=== PATIENT | male | born 1970 | race Caucasian/White ===

== ENCOUNTER → 2020-06-10 13:03 | Outpatient (BNVA) | payer MEDICARE, SELFPAY | PROVIDERS: PCP Nurse Practitioner; Visit Provider Internal Medicine Rheumatology | DX: M05.79 Rheumatoid arthritis with rheumatoid factor of multiple sites without organ or systems involvement (principal); Z79.899 Other long term (current) drug therapy; Z11.59 Encounter for screening for other viral diseases; Z11.1 Encounter for screening for respiratory tuberculosis; R74.01 Elevation of levels of liver transaminase levels; F10.10 Alcohol abuse, uncomplicated; F17.210 Nicotine dependence, cigarettes, uncomplicated; M05.9 Rheumatoid arthritis with rheumatoid factor, unspecified | CPT/HCPCS: 36415; 80076; 82306; 86480; 86704; 86803; 87340; 99204 ==

== ENCOUNTER 2020-06-10 14:35 | Outpatient (CLI) | payer MEDICARE, SELFPAY ==
[2020-06-10 16:44] LABS: 25 Hydroxy Vitamin D 19 ng/mL (30-100); Alanine Aminotransferase 54 U/L (0-41); Albumin Level 3.6 g/dL (3.5-5.2); Alkaline Phosphatase 186 IU/L (40-130); Aspartate Amino Transferase 63 U/L (0-40); Globulin 3.5 g/dL (1.3-4.6); Total Bilirubin 0.4 mg/dL (0.15-1.2); Total Protein 7.1 g/dL (6.6-8.7)
[2020-06-10 16:46] LABS: Hepatitis B Core AB, Total Non-Reactive (Nonreactive); Hepatitis B Surface Antigen Non-Reactive (Nonreactive); Hepatitis C Virus Antibody Non-Reactive (Nonreactive)
[2020-06-11 14:44] LABS: Cyclic Citrullinated Peptide <16 UNITS
[2020-06-12 13:23] LABS: Quantiferon Mitogen 9.22 IU/mL; Quantiferon Nil 0.03 IU/mL; Quantiferon TB Gold NEGATIVE (NEGATIVE)
== END 2020-06-10 14:36 | disposition home or self-care (01) ==
PROVIDERS: PCP Nurse Practitioner; Visit Provider Internal Medicine Rheumatology
DX: M05.9 Rheumatoid arthritis with rheumatoid factor, unspecified (principal); Z79.899 Other long term (current) drug therapy
CPT/HCPCS: 36415; 80076; 82306; 86480; 86704; 86803; 87340

== ENCOUNTER → 2020-07-21 14:48 | Outpatient (BNVA) | payer MEDICARE, SELFPAY | PROVIDERS: PCP Nurse Practitioner; Visit Provider Internal Medicine Rheumatology | DX: M05.79 Rheumatoid arthritis with rheumatoid factor of multiple sites without organ or systems involvement (principal); G56.03 Carpal tunnel syndrome, bilateral upper limbs; E55.9 Vitamin D deficiency, unspecified; R74.01 Elevation of levels of liver transaminase levels; Z79.899 Other long term (current) drug therapy; F10.10 Alcohol abuse, uncomplicated; F17.210 Nicotine dependence, cigarettes, uncomplicated | CPT/HCPCS: 99214 ==

== ENCOUNTER 2020-08-11 08:25 | Outpatient (CLI) | payer MEDICARE, SELFPAY ==
--- NOTE | 2020-08-11 | US_ITS ---
WS: [id number] ULTRASOUND ABDOMEN CLINICAL INFORMATION: ELEVATED LIVER ENZYMES COMPARISON: None. FINDINGS: Liver Size: Normal. Craniocaudal length: 15.4 cm. Echogenicity: Normal. Surface nodularity: None. Mass (size and location): None. Bile ducts Intrahepatic ducts: Normal. Common bile duct diameter: 2.6 mm. Gallbladder Cholelithiasis Gallstones: Present Gallbladder sludge: None. Gallbladder wall thickening: None. Pericholecystic fluid: None. Sonographic Wyatt sign: Absent. Pancreas Normal as visualized. Right kidney: Normal. Hydronephrosis: None. Size: 9.9 cm x 4.2 cm x 4.6 cm Abdominal aorta and IVC Visualized portions are normal. Ascites: None. US/US liver [id number] IMPRESSION: 1. Normal liver. 2. Cholelithiasis. Normal common bile duct. No gallbladder wall thickening or pericholecystic fluid. 3. No hydronephrosis in right kidney.
== END 2020-08-11 08:26 | disposition home or self-care (01) ==
PROVIDERS: PCP Nurse Practitioner; Visit Provider Nurse Practitioner
DX: R74.8 Abnormal levels of other serum enzymes (principal); K80.20 Calculus of gallbladder without cholecystitis without obstruction
CPT/HCPCS: 76705

== ENCOUNTER → 2021-01-29 09:39 | Outpatient (BNVA) | payer MEDICARE, SELFPAY | PROVIDERS: PCP Nurse Practitioner; Visit Provider Internal Medicine Rheumatology | DX: M05.79 Rheumatoid arthritis with rheumatoid factor of multiple sites without organ or systems involvement (principal); Z79.899 Other long term (current) drug therapy; G56.03 Carpal tunnel syndrome, bilateral upper limbs; E55.9 Vitamin D deficiency, unspecified; F10.10 Alcohol abuse, uncomplicated; R74.01 Elevation of levels of liver transaminase levels; Z71.89 Other specified counseling; F17.200 Nicotine dependence, unspecified, uncomplicated | CPT/HCPCS: 99214 ==

== ENCOUNTER 2021-05-09 12:46 | Emergency (ER) | payer MEDICARE, SELFPAY ==
[2021-05-09 13:02] VITALS: BP 103/69; PULSE 85; RESP 22; TEMP 36.6; O2SAT 99; BMI 19.8
--- NOTE | 2021-05-09 14:42 | ED_ITS ---
HPI - Nausea/Vomiting/Diarrhea General: Chief complaint: Nausea/Vomiting/Diarrhea Stated complaint: SOB/LOW BP/N,V Time Seen by Provider: 05/09/21 14:41 History of Present Illness: HPI Narrative: Mr. Garay is a 50-year-old gentleman with significant past medical history of alcohol abuse, rheumatoid arthritis who presents emergency department due to nausea and vomiting. Symptom onset was subacute approximately 3 days ago. He has had what he reports is near constant nausea and vomiting without significant relief. He has been not been able to tolerate oral intake. He has associated mild chills and shortness of breath. Blood pressure at home was reportedly low at 62/47. Overall the course of symptoms has been worsening. Intensity is moderate to severe. He denies alcohol use over the past 3 days. No other specific exacerbating or relieving factors. Review of Systems General: Reports: 10 or more systems reviewed and unremarkable except in HPI and below PFSH ED PFSH: Medical History (Updated 05/09/21 @ 22:23 by Sean Hayden MD) Alcohol abuse Bilateral carpal tunnel syndrome High risk medication use Immunization counseling Joint pain Liver failure 2016 Pt states resolved Low vitamin D level Seropositive rheumatoid arthritis of multiple sites Surgical History Previous back surgery fusion Family History Other Family history not known due to adoption Social History Smoking and tobacco status: current every day smoker Alcohol intake: current Alcohol intake frequency: few times a week History of recent travel: No Physical Exam Narrative: EXAM NARRATIVE: GENERAL/CONSTITUTIONAL -ill appearance. Vomiting Eyes -no scleral icterus, no conjunctival injection ENMT - Atraumatic external nose and ears. Dry mucous membranes NECK - supple. trachea midline CARDIOVASCULAR -tachycardic rate and regular rhythm. Cap refill borderline RESPIRATORY -clear to auscultation bilaterally. No retractions or accessory muscle use. ABDOMEN/GI -nondistended. Generalized tenderness palpation no tenderness to percussion or evidence of peritonitis MSK - Extremities without obvious deformity or tenderness to palpation SKIN - Warm, Dry NEURO - alert and appropriately oriented. Moves all extremities equally. PSYCH - Appropriate mood and affect Course ED course: - Patient was seen and evaluated by me at bedside - Patient placed on cardiac monitors, IV access obtained - Initial evaluation notable for ill appearance, patient actively vomiting -Symptom treatment ordered - Labs notable for no leukocytosis, hemoconcentration. Lactate elevated metabolic panel notable for hypokalemia and hyponatremia likely consistent with volume depletion. AST greater than ALT likely secondary to alcohol use - Imaging notable for Negative chest and abdomen pelvis CT - Upon serial reexamination after treatment the patient was markedly improved. Given marked improvement in clinical reassurance after fluid resuscitation and electrolyte replenishment there is question regarding patient's need for adm ission. Therefore additional labs ordered, potassium and lactate improving. Patient subsequently tolerated oral intake and reported feeling significantly improved - Based on patient history, evaluation, labs, and imaging as interpreted the most likely cause of the patient's condition is acute dehydration secondary to nausea and vomiting. The exact cause is unclear may be viral or related to alc ohol abuse. - The results of ED evaluation were discussed with the patient including prescriptions and/or symptomatic cares (if applicable) including appropriate and responsible use, followup plan, and return precautions. The patient verbalized understanding and felt safe for discharge. - Patient discharged in satisfactory condition. Vital Signs: Vital signs: Vital Signs Temperature 97.8 F 05/09/21 13:02 Pulse Rate 78 05/09/21 22:38 Respiratory Rate 16 05/09/21 22:38 Blood Pressure 120/78 05/09/21 22:38 Pulse Oximetry 98 05/09/21 22:38 MDM - Nausea/Vomiting/Diarrhea Medical Records: Attestation: I reviewed the patient's medical records. Lab Data: Attestation: I reviewed the patient's lab results. Labs: Lab Results 05/09/21 05/09/21 05/09/21 15:32 15:32 15:32 WBC 8.0 10^3/uL 10^3/ uL (4.0-10.0) RBC 5.48 10^6/uL H 10 ^6/uL (4.1-5.3) Hgb 18.6 g/dL H g/dL (11.7-16.6) Hct 52.7 % H % (42.0-52.0) MCV 96.2 fl H fl (80-94) MCH 33.9 pg pg (28.0-34.0) MCHC 35.3 g/dL g/dL (30.0-36.0) RDW 11.7 % L % (12.1-15.1) Plt Count 201 10^3/cmm 10^3 /cmm (130-400) MPV 10.1 fL fL (7.4-10.4) Neut % (Auto) 72.1 % % Lymph % (Auto) 11.1 % % [place] % (Auto) 13.5 % % Eos % (Auto) 2.2 % % Baso % (Auto) 0.4 % % Neut # (Auto) 5.78 10^3/uL 10^3 /uL (1.8-7.7) Lymph # (Auto) 0.9 10^3/uL 10^3/ uL (0.8-4.8) [place] # (Auto) 1.1 10^3/uL H 10^ 3/uL (0.2-0.9) Eos # (Auto) 0.2 10^3/uL 10^3/ uL (0.0-0.8) Baso # (Auto) 0.0 10^3/uL 10^3/ uL (0.0-0.1) Nucleated RBC % (a uto) 0 % % Nucleated RBCs # 0.0 /100WBC /100W BC Sodium 135 mmol/L L mmol /L (136-145) Potassium 2.7 mmol/L L* mmo l/L (3.5-5.1) Chloride 78 mmol/L L mmol/ L (98-107) Carbon Dioxide 34 mmol/L H mmol/ L (22-29) Anion Gap 25.7 H (5-19) BUN 9 mg/dL mg/dL (6-20) Creatinine 0.9 mg/dL mg/dL (0.7-1.2) GFR Calculation 89.3 mL/min L mL/ min (90-130) Glucose 96 mg/dL mg/dL (65-115) Calculated Osmolal ity 279 mOsm/kg L mOs m/kg (285-295) Lactate 4.1 mmol/L H* mmo l/L (0.5-2.2) Calcium 10.1 mg/dL mg/dL (8.5-10.5) Total Bilirubin 1.6 mg/dL H mg/dL (0.15-1.2) AST 91 U/L H U/L (0-40) ALT 40 U/L U/L (0-41) Alkaline Phosphata se 139 IU/L H IU/L (40-130) Troponin T Baselin e Troponin T 120 Min [place] Delta Troponin T Troponin T Hi Sens 6Hr Troponin T Hi Sens 6Hr Delta Total Protein 8.2 g/dL g/dL (6.6-8.7) Albumin 4.0 g/dL g/dL (3.5-5.2) Globulin 4.2 g/dL g/dL (1.3-4.6) Lipase 38 U/L U/L (13-60) Urine Color Urine Appearance Urine pH Ur Specific Gravit y Urine Protein Urine Glucose (UA) Urine Ketones Urine Blood Urine Nitrate Urine Bilirubin Prot Sulfosalicyli c Acd Urine Urobilinogen Ur Leukocyte Monserrat ase Urine RBC Urine WBC Ur Squamous Epith Cells Amorphous Sediment Urine Bacteria Hyaline Casts Urine Mucus 05/09/21 05/09/21 05/09/21 15:32 15:32 17:52 WBC RBC Hgb Hct MCV MCH MCHC RDW Plt Count MPV Neut % (Auto) Lymph % (Auto) [place] % (Auto) Eos % (Auto) Baso % (Auto) Neut # (Auto) Lymph # (Auto) [place] # (Auto) Eos # (Auto) Baso # (Auto) Nucleated RBC % (a uto) Nucleated RBCs # Sodium Potassium Chloride Carbon Dioxide Anion Gap BUN Creatinine GFR Calculation Glucose Calculated Osmolal ity Lactate Calcium Total Bilirubin AST ALT Alkaline Phosphata se Troponin T Baselin e 11 ng/L ng/L (0-15) Troponin T 120 Min [place] 9.55 ng/L ng/L (0-15) Delta Troponin T -1.45 ABS# L ABS# (0-10) Troponin T Hi Sens 6Hr Troponin T Hi Sens 6Hr Delta Total Protein Albumin Globulin Lipase Urine Color Dark yellow (Yellow) Urine Appearance Clear (CLEAR) Urine pH 8 H (5-7) Ur Specific Gravit y 1.015 (1.005-1.030) Urine Protein Trace (Negative) Urine Glucose (UA) Norm (Normal) Urine Ketones 1+ H (Negative) Urine Blood Neg (Negative) Urine Nitrate Negative (Negative) Urine Bilirubin 2+ H (Negative) Prot Sulfosalicyli c Acd Positive (Negative) Urine Urobilinogen 8 mg/dL H mg/dL (Negative) Ur Leukocyte Monserrat ase Negative (Negative) Urine RBC None /hpf /hpf (0-2) Urine WBC None /hpf /hpf (0-5) Ur Squamous Epith Cells None /hpf /hpf (0-5) Amorphous Sediment Not Reportable Urine Bacteria Trace /hpf /hpf (NONE) Hyaline Casts 25-40 /lpf H /lpf Urine Mucus 1+ /hpf /hpf 05/09/21 05/09/21 05/09/21 20:13 20:13 20:13 WBC RBC Hgb Hct MCV MCH MCHC RDW Plt Count MPV Neut % (Auto) Lymph % (Auto) [place] % (Auto) Eos % (Auto) Baso % (Auto) Neut # (Auto) Lymph # (Auto) [place] # (Auto) Eos # (Auto) Baso # (Auto) Nucleated RBC % (a uto) Nucleated RBCs # Sodium Cancelled Potassium Cancelled Chloride Cancelled Carbon Dioxide Cancelled Anion Gap Cancelled BUN Cancelled Creatinine Cancelled GFR Calculation Cancelled Glucose Cancelled Calculated Osmolal ity Cancelled Lactate 1.4 mmol/L mmol/L (0.5-2.2) Calcium Cancelled Total Bilirubin AST ALT Alkaline Phosphata se Troponin T Baselin e Troponin T 120 Min [place] Delta Troponin T Troponin T Hi Sens 6Hr 11.76 ng/L ng/L (0-15) Troponin T Hi Sens 6Hr Delta 0.76 ng/L ng/L (0-12) Total Protein Albumin Globulin Lipase Urine Color Urine Appearance Urine pH Ur Specific Gravit y Urine Protein Urine Glucose (UA) Urine Ketones Urine Blood Urine Nitrate Urine Bilirubin Prot Sulfosalicyli c Acd Urine Urobilinogen Ur Leukocyte Monserrat ase Urine RBC Urine WBC Ur Squamous Epith Cells Amorphous Sediment Urine Bacteria Hyaline Casts Urine Mucus 05/09/21 21:00 WBC RBC Hgb Hct MCV MCH MCHC RDW Plt Count MPV Neut % (Auto) Lymph % (Auto) [place] % (Auto) Eos % (Auto) Baso % (Auto) Neut # (Auto) Lymph # (Auto) [place] # (Auto) Eos # (Auto) Baso # (Auto) Nucleated RBC % (a uto) Nucleated RBCs # Sodium 130 mmol/L L mmol /L (136-145) Potassium 3.3 mmol/L L mmol /L (3.5-5.1) Chloride 92 mmol/L L mmol/ L (98-107) Carbon Dioxide 30 mmol/L H mmol/ L (22-29) Anion Gap 11.3 (5-19) BUN 8 mg/dL mg/dL (6-20) Creatinine 0.7 mg/dL mg/dL (0.7-1.2) GFR Calculation 119.4 mL/min mL/m in (90-130) Glucose 74 mg/dL mg/dL (65-115) Calculated Osmolal ity 267 mOsm/kg L mOs m/kg (285-295) Lactate Calcium 8.0 mg/dL L mg/dL (8.5-10.5) Total Bilirubin AST ALT Alkaline Phosphata se Troponin T Baselin e Troponin T 120 Min [place] Delta Troponin T Troponin T Hi Sens 6Hr Troponin T Hi Sens 6Hr [place] Total Protein Albumin Globulin Lipase Urine Color Urine Appearance Urine pH Ur Specific Gravit y Urine Protein Urine Glucose (UA) Urine Ketones Urine Blood Urine Nitrate Urine Bilirubin Prot Sulfosalicyli c Acd Urine Urobilinogen Ur Leukocyte Monserrat ase Urine RBC Urine WBC Ur Squamous Epith Cells Amorphous Sediment Urine Bacteria Hyaline Casts Urine Mucus EKG Data^: EKG 1: Attestation: I personally reviewed and interpreted this EKG as follows: EKG interpretation date: 05/09/21 EKG interpretation time: 15:56 Interpretation: Twelve-lead EKG shows a regular rhythm at a rate of 106. NH interval 115, QRS 93, QTc 429. Normal axis. Interpretation: Sinus rhythm. Short NH without delta waves. Ectopy. EKG 2: Attestation: I personally reviewed and interpreted this EKG as follows: EKG interpretation date: 05/09/21 EKG interpretation time: 17:47 Interpretation: Twelve-lead EKG shows a regular rhythm at a rate of 71. NH interval 123, QRS duration 93, QTc 466. Normal axis. Interpretation: Sinus rhythm. EKG 3: Attestation: I personally reviewed and interpreted this EKG as follows: EKG interpretation date: 05/09/21 EKG interpretation time: 21:08 Interpretation: Twelve-lead EKG shows a regular rhythm at a rate of 66. NH interval 127, QRS duration 93, QTc 460. Normal axis. Interpretation: Sinus rhythm. Discharge Plan Discharge Patient Disposition: Home Clinical Impression: Acute nausea with nonbilious vomiting, Acute dehydration, Acute hypokalemia, Acidosis, lactic Condition: Stable Prescriptions: New ondansetron 4 mg tablet,disintegrating 4 mg PO Q8H 5 Days Qty: 15 RF: 0 No Action multivitamin Tablet 1 tab PO DAILY RF: 0 escitalopram oxalate [Lexapro] 10 mg tablet 10 mg PO DAILY RF: 0 sulfasalazine 500 mg tablet 0.5 g PO BID Qty: 60 RF: 3 gabapentin 300 mg capsule See Rx Instructions PO BID Qty: 60 RF: 3 pantoprazole 40 mg tablet,delayed release (DR/EC) 40 mg PO DAILY Qty: 30 RF: 3 prednisone 5 mg tablet See Rx Instructions PO DAILY Qty: 60 RF: 3 Humira Pen 40 mg/0.8 mL pen injector kit 40 mg SUBCUT Q14D Qty: 2 RF: 3 Discharge Orders: Discharge ED (Routine); Ordered 05/09/21 Ordered By: Sean Hayden Referrals: Dalia Nolasco, [employer] [Primary Care Provider] - Discharge Diet: Advance as tolerated and Clear Liquid Discharge Activity: Resume usual activity Patient Instructions: Dehydration (ED), Hypokalemia (ED), Acute Nausea and Vomiting (ED), Opioid Safety Activity Restrictions/Additional Instructions: Thank you for visiting the emergency department. You were seen and evaluated for nausea and vomiting. You were found to be quite dehydrated and your potassium was low. This improved after fluids and supplemental potassium. Please ensure that you are staying hydrated with water and electrolyte solutions. You require repeat lab studies within 1 week. Please follow-up with your primary care provider. Please return to the emergency department for worsening symptoms or anything else that you are concerned about and feel needs emergency department evaluation. Coding Level of Care Code ED Laundry Helper for Don Sapp
--- NOTE | 2021-05-09 15:00 | XRR_ITS ---
PROCEDURE INFORMATION: Exam: XR Chest Exam date and time: 05/09/2021 3:00 PM Age: 50 years old Clinical indication: Shortness of breath; Additional info: SOB TECHNIQUE: Imaging protocol: XR of the chest. Views: 1 view. Total images: 1 COMPARISON: CR Chest 1 [place] [id number] 05/25/2014 8:54 PM FINDINGS: Lungs: No visible active interstitial or alveolar airspace disease. Hyperinflation and query a history of reactive airway disease/asthma/chronic bronchitis. Pleural spaces: Unremarkable. No pleural effusion. No pneumothorax. Heart/Mediastinum: Microcardia. Bones/joints: Status post thoracic interpedicle screw and sidebar fixation. XR/XR chest 1V portable [id number] IMPRESSION: Hyperinflation. Radiation Dose CTDIVOL = (mGy): DLP = (mGy-cm)
--- NOTE | 2021-05-09 15:00 | CTR_ITS ---
PROCEDURE INFORMATION: Exam: CT Abdomen And Pelvis With Contrast Exam date and time: 05/09/2021 3:00 PM Age: 50 years old Clinical indication: Nausea and vomiting; Abdominal pain; Generalized; Additional info: Abd pain, n/v/d TECHNIQUE: Imaging protocol: Computed tomography of the abdomen and pelvis with contrast. Total images: 197 Radiation optimization: All CT scans at this facility use at least one of these dose optimization techniques: automated exposure control; mA and/or kV adjustment per patient size (includes targeted exams where dose is matched to clinical indication); or iterative reconstruction. Contrast material: OMNI 300; Contrast volume: 95 ml; Contrast route: INTRAVENOUS (IV); COMPARISON: [place] [id number] 08/11/2020 8:25 AM RADIATION DOSE METRICS: Total DLP (mGy-cm): 618.67 FINDINGS: Lungs: Limited assessment lung bases reveals hyperinflation of emphysema/COPD/chronic bronchitis. Liver: No visible hepatic mass or cystic structure. Gallbladder and bile ducts: Solitary tiny gallstone. No gallbladder wall thickening or pericholecystic fluid. No visible intra or extrahepatic biliary ectasia. Pancreas: Pancreas unremarkable. Spleen: Spleen unremarkable. Adrenal glands: Adrenal glands unremarkable. Kidneys and ureters: No hydronephrosis or perinephric fluid. No visible nephrolithiasis. Stomach and bowel: Minimal diverticulosis coli without visible evidence for acute diverticulitis. Nonobstructive bowel pattern. No visible adynamic or reactive ileus. Appendix: The appendix is visualized and appears noninflamed. Intraperitoneal space: No visible pneumoperitoneum or intraperitoneal ascites. Vasculature: Portal vein patent. The abdominal aorta is nonaneurysmal. Mild arterial sclerotic disease. Lymph nodes: No current visible evidence of active mesenteric or retroperitoneal lymphadenopathy. No visible evidence of mesenteric lymphadenitis or active mesenteritis/panniculitis. Urinary bladder: Urinary bladder unremarkable. Reproductive: Mild prostate enlargement. Bones/joints: No visible active or acute osseous pathology. Soft tissues: Unremarkable. Other findings: Microcardia. CT/CT abdomen pelvis w con* [id number] IMPRESSION: 1. Currently no visible evidence for acute abdominal or pelvic pathologic process. 2. Solitary tiny gallstone. 3. Limited assessment lung bases reveals hyperinflation. Radiation Dose CTDIVOL = (mGy): DLP = 618.67 (mGy-cm)
--- NOTE | 2021-05-09 15:02 | ECG_ITS ---
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1970 Requested By: Sean Hayden Order Number: [id number] Nirmala MD: ALEXX SALEEM Measurements Intervals [place] Rate: 106 P: 82 LA: 115 QRS: 79 QRSD: 93 T: 75 QT: 367 QTc: 489 Interpretive Statements SINUS TACHYCARDIA WITH SHORT LA INTERVAL WITH OCCASIONAL VENTRICULAR PREMATURE COMPLEXES NONSPECIFIC ST & T-WAVE ABNORMALITY ABNORMAL RHYTHM ECG No previous ECG available for comparison Electronically Signed On 05-11-2021 0:11:33 CDT by ALEXX SALEEM [id number] f
[2021-05-09] MEDS: ondansetron 2 mg/ML SDV 2 mL 4 MG IVP (15:49)
[2021-05-09] MEDS: folic acid 1 mg Tablet PO (15:50)
[2021-05-09] MEDS: sodium chloride 0.9% 1,000 ML 999 ML IV ×2 (15:50→16:59)
[2021-05-09 16:04] LABS: Basophils % 0.4 %; Eosinophils # 0.2 10^3/uL (0.0-0.8); Eosinophils % 2.2 %; Hematocrit 52.7 % (42.0-52.0); Hemoglobin 18.6 g/dL (11.7-16.6); Lymphocytes # 0.9 10^3/uL (0.8-4.8); Lymphocytes % 11.1 %; Mean Corpuscular HGB Conc 35.3 g/dL (30.0-36.0); Mean Corpuscular Hemoglobin 33.9 pg (28.0-34.0); Mean Corpuscular Volume 96.2 fl (80-94); Mean Platelet Volume 10.1 fL (7.4-10.4); Monocytes # 1.1 10^3/uL (0.2-0.9); Monocytes % 13.5 %; Neutrophils # 5.78 10^3/uL (1.8-7.7); Neutrophils % 72.1 %; Nucleated Red Blood Cells % 0 %; Platelet Count 201 10^3/cmm (130-400); Red Blood Count 5.48 10^6/uL (4.1-5.3); Red Cell Distribution Width 11.7 % (12.1-15.1)
[2021-05-09 16:24] LABS: Troponin(5th) Baseline 11 ng/L (0-15)
[2021-05-09 16:25] LABS: Alanine Aminotransferase 40 U/L (0-41); Alkaline Phosphatase 139 IU/L (40-130); Anion Gap 25.7 (5-19); Aspartate Amino Transferase 91 U/L (0-40); Blood Urea Nitrogen 9 mg/dL (6-20); Calcium 10.1 mg/dL (8.5-10.5); Carbon Dioxide 34 mmol/L (22-29); Chloride 78 mmol/L (98-107); Globulin 4.2 g/dL (1.3-4.6); Glomerular Filtration Rate 89.3 mL/min (90-130); Glucose 96 mg/dL (65-115); Lipase 38 U/L (13-60); Osmolality Calculated 279 mOsm/kg (285-295); Sodium 135 mmol/L (136-145); Total Bilirubin 1.6 mg/dL (0.15-1.2); Total Protein 8.2 g/dL (6.6-8.7)
[2021-05-09 16:27] LABS: Potassium 2.7 mmol/L (3.5-5.1)
[2021-05-09 16:28] LABS: Lactate (Lactic Acid level) 4.1 mmol/L (0.5-2.2)
[2021-05-09] MEDS: iohexol 300 mg/mL 100 mL Btl IV (16:36)
[2021-05-09 16:58] LABS: Add Urine Microscopic? YES; Bilirubin Urine 2+ (Negative); Blood Urine Neg (Negative); Glucose Urine UA Norm (Normal); Ketones Urine 1+ (Negative); Leukocyte Esterase Urine Negative (Negative); Nitrate Urine Negative (Negative); Protein Urine Trace (Negative); Specific Gravity, Urine 1.015 (1.005-1.030); Sulfosalicylic Acid Urine Positive (Negative); Urine Appearance Clear (CLEAR); Urine Color Dark Yellow (Yellow); Urobilinogen Urine 8 mg/dL (Negative); pH Urine 8 (5-7)
[2021-05-09] MEDS: potassium chloride ER 20 mEq Tablet 40 MEQ PO (16:59)
[2021-05-09] MEDS: lidocaine 1% 5 ML in potassium chloride premix 100 ML 25 ML IV (16:59)
[2021-05-09 17:02] LABS: Add Urine Culture? No; Bacteria Urine TRACE /hpf; Hyaline Casts Urine 25-40 /lpf; Mucus Urine 1+ /hpf
--- NOTE | 2021-05-09 17:02 | ECG_ITS ---
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
[2021-05-09 18:20] LABS: Troponin 5 2HR 9.55 ng/L (0-15); Troponin 5 2HR Delta -1.45 ABS# (0-10)
[2021-05-09 20:44] LABS: Lactate (Lactic Acid level) 1.4 mmol/L (0.5-2.2)
[2021-05-09 20:45] LABS: Troponin 5 6HR 11.76 ng/L (0-15); Troponin 5 6HR Delta 0.76 ng/L (0-12)
--- NOTE | 2021-05-09 21:02 | ECG_ITS ---
[facility] Test Date: 2021-05-09 Pat Name: Nader Garay Department: Room: Gender: Male Manager Medical Affairs: : 1970 Requested By: Sean Hayden Order Number: [id number] Nirmala MD: ALEXX SALEEM Measurements Intervals [place] Rate: 66 P: 78 RI: 127 QRS: 79 QRSD: 93 T: 79 QT: 446 QTc: 469 Interpretive Statements SINUS RHYTHM Compared to ECG 05/09/2021 17:42:55 Prolonged QT interval no longer present Electronically Signed On 05-11-2021 0:17:27 CDT by ALEXX SALEEM [id number]
[2021-05-09 21:37] LABS: Anion Gap 11.3 (5-19); Blood Urea Nitrogen 8 mg/dL (6-20); Carbon Dioxide 30 mmol/L (22-29); Chloride 92 mmol/L (98-107); Glomerular Filtration Rate 119.4 mL/min (90-130); Glucose 74 mg/dL (65-115); Osmolality Calculated 267 mOsm/kg (285-295); Potassium 3.3 mmol/L (3.5-5.1); Sodium 130 mmol/L (136-145)
[2021-05-09 22:38] VITALS: BP 120/78; PULSE 78; RESP 16; O2SAT 98
== END 2021-05-09 22:40 | disposition home or self-care (01) ==
PROVIDERS: Emergency Provider Emergency Medicine; PCP Nurse Practitioner
DX: R11.2 Nausea with vomiting, unspecified (principal); E86.0 Dehydration; E87.6 Hypokalemia; E87.2 Acidosis; Z79.52 Long term (current) use of systemic steroids; Z79.899 Other long term (current) drug therapy
CPT/HCPCS: 36415; 71045; 74177; 80048; 80053; 81001; 83605; 83690; 84484; 85025; 93005; 96365; 96366; 96367; 96375; 99284; J2405; J3411; J3475; J3480; J7030; Q9967

== ENCOUNTER → 2022-03-09 09:44 | Outpatient (BNVA) | payer MEDICARE, SELFPAY | PROVIDERS: PCP Physician Assistant; Visit Provider Internal Medicine Rheumatology | DX: M05.79 Rheumatoid arthritis with rheumatoid factor of multiple sites without organ or systems involvement (principal); Z79.899 Other long term (current) drug therapy; Z71.89 Other specified counseling; G56.03 Carpal tunnel syndrome, bilateral upper limbs; R74.01 Elevation of levels of liver transaminase levels; E55.9 Vitamin D deficiency, unspecified | CPT/HCPCS: 36415; 85025; 99214 ==

== ENCOUNTER → 2022-03-11 09:38 | Outpatient (BNVA) | payer MEDICARE, SELFPAY | PROVIDERS: PCP Physician Assistant; Visit Provider Internal Medicine Rheumatology | DX: Z79.899 Other long term (current) drug therapy (principal); M05.79 Rheumatoid arthritis with rheumatoid factor of multiple sites without organ or systems involvement; G56.03 Carpal tunnel syndrome, bilateral upper limbs | CPT/HCPCS: 80076; 82565; 86140 ==